=== PATIENT | male | born 1980 | race Caucasian/White ===

== ENCOUNTER → 2022-08-20 | Outpatient (CLI) | payer SELFPAY ==
--- NOTE | 2022-08-19 13:30 | VAS_PTH ---
PATIENT: JASMIN LOWERY LOC: [facility] U#:[id number] AGE/SX: 41/M ROOM: RE08/20/[address]: Dr. Everardo Carter MD : 1980 BED: DIS: 08/20/2022 SPEC #: [id number] RECD: 08/20/22 09:34 STATUS: RODNEY KORY #: [id number] ANN: 08/19/22 13:[address]: Everardo Carter DEPT: SURGICAL PATHOLOGY RECD BY: Roselyn Baker ENTERED: 08/20/22 13:15 SP TYPE: VAS OTHR DR: Out of Town Doctor Tissues: A - Vas deferens, NOS B - Vas deferens, NOS Procedures: Surgery Specimen Level II HEADER OPERATION: Bilateral partial vasectomy PRE-OP DIAGNOSIS: Sterilization TISSUE SUBMITTED: A ? Right vas deferens, B ? Left vas deferens MICROSCOPIC DIAGNOSIS A. Right vas deferens, segmental vasectomy: Complete cross-section of vas deferens with no pathologic change. B. Left vas deferens, segmental vasectomy: Complete cross-section of vas deferens with no pathologic change. AM:avery 08/21/2022 MICROSCOPIC DESCRIPTION Slides are reviewed. GROSS DESCRIPTION A - Received is one container designated right vas deferens. The specimen consists of a tubular segment of klein soft tissue measuring 0.7 cm in length and 0.2 cm in diameter. The specimen is sectioned and submitted entirely in one cassette. B - Received is one container designated left vas deferens. The specimen consists of a tubular segment of klein soft tissue measuring 1 cm in length and 0.3 cm in diameter. The specimen is sectioned and submitted entirely in one cassette. / SJ:avery 08/20/2022 TC:4 CPT: 67668 x2
== END | disposition home or self-care (01) ==
LOC: LABSPEC 12:45
PROVIDERS: Visit Provider Surgery
DX: Z30.2 Encounter for sterilization (principal)
CPT/HCPCS: 88302

== ENCOUNTER → 2023-10-06 | Outpatient (CLI) | payer SELFPAY ==
--- NOTE | 2023-10-06 16:07 | CYSPIN_PTH ---
PATHOLOGY RESULTS PATIENT: JASMIN LOWERY LOC: LAB U#:[id number] AGE/SX: 42/M ROOM: RE10/06/[address]: Dr. Everardo Carter MD : 1980 BED: DIS: 10/06/2023 SPEC #: [id number] RECD: 10/07/23 07:03 STATUS: RODNEY KORY #: [id number] ANN: 10/06/23 16:[address]: Everardo Carter DEPT: CYTOLOGY RECD BY: Roselyn Baker ENTERED: 10/07/23 07:03 SP TYPE: CYSPIN FL OTHR DR: Out of [facility] Doctor Tissues: Cytologic material, NOS Procedures: Pap Stain (control) Special Stain Group II Cytospin Fluid HEADER OPERATION: Post vasectomy PRE-OP DIAGNOSIS: Vasectomy status TISSUE SUBMITTED: Seminal fluid for cytology DIAGNOSIS CYTOLOGY Seminal fluid for cytology (cytospin); No spermatozoa identified AM/mr 3/12/24 CYTOLOGY STUDY Slides are reviewed. CYTOLOGY GROSS Received is 10 ml of cloudy opaque fluid labeled with the patient's name and and designated per the requisition as seminal fluid. Submitted for cytology preparation. / rg 10/06/2023 TC:5 CPT: 86753
[2023-10-06 18:17] LABS: Cytology, Semen SEE PATHOLOGY REPORT
== END | disposition home or self-care (01) ==
LOC: LAB 15:55
PROVIDERS: Referring Provider Surgery; Visit Provider Surgery
DX: Z98.52 Vasectomy status (principal)
CPT/HCPCS: 88108; 88313